=== PATIENT | female | born 1980 | race Caucasian/White ===

== ENCOUNTER 2019-06-20 09:15 | Emergency (ER) | payer SELFPAY ==
[~2019-06-20] VITALS: Ht 154.9 cm; Wt 111.0 kg
[2019-06-20] MEDS ORDERED: ACETAMINOPHEN 325MG TABLET PO PRN (10:30)
[2019-06-20] MEDS ORDERED: LABETALOL HCL 100MG TABLET PO ONE (10:30)
[2019-06-20 10:56] LABS: CLARITY URINE CLEAR (CLEAR); COLOR URINE YELLOW (YELLOW); KETONES URINE NEGATIVE (NEGATIVE); LEUKOCYTE ESTERASE URINE NEGATIVE (NEGATIVE); NITRITE URINE NEGATIVE (NEGATIVE); OCCULT BLOOD URINE 2+ (NEGATIVE); PH URINE 7.5 (4.5-8.0); PROTEIN URINE NEGATIVE (NEGATIVE); SPECIFIC GRAVITY URINE 1.012 (1.005-1.030); UROBILINOGEN URINE 0.2 E.U./dL (0.2-1.0)
[2019-06-20 10:57] LABS: EOSINOPHILS % 3.7 % (0.0-5.0); HEMATOCRIT. 38.4 % (36.0-48.0); HEMOGLOBIN. 12.7 g/dL (12.0-16.0); LYMPHOCYTES % 33.3 % (20.0-50.0); MEAN CORPUSCULAR HEMOGLOBIN 27.3 pg (28.0-32.0); MEAN CORPUSCULAR VOLUME 82.2 fL (81.0-99.0); MEAN PLATELET VOLUME 9.1 fl (7.4-10.4); MONOCYTES % 7.2 % (2.0-8.0); NEUTROPHILS % 54.8 % (40.0-76.0); PLATELET 225 x1000/uL (130-400); RED BLOOD CELL COUNT 4.66 mill/uL (4.2-5.4); RED CELL DISTRIBUTION WIDTH 14.6 % (11.6-14.6)
[2019-06-20 11:01] LABS: CHLORIDE 106 mEq/L (98-107)
[2019-06-20 11:23] LABS: B-HCG QUANTITATIVE 3556 mIU/mL (<3)
[2019-06-20 12:20] VITALS: BP 135/71
== END 2019-06-20 13:37 | disposition home or self-care (01) ==
LOC: ER 09:15
DX: O20.0 Threatened abortion (principal); O16.9 Unspecified maternal hypertension, unspecified trimester; O09.529 Supervision of elderly multigravida, unspecified trimester; Z3A.00 Weeks of gestation of pregnancy not specified
CPT/HCPCS: 36415; 76801; 81003; 81025; 84702; 86850; 86900; 99284

== ENCOUNTER 2019-06-22 09:42 | Emergency (ER) | payer MEDICAID ==
[~2019-06-22] VITALS: Ht 154.9 cm; Wt 120.0 kg
[2019-06-22] MEDS ORDERED: LABETALOL 5MG/ML SYR 20 MG/4 ML SYRINGE IV ONE (10:15)
[2019-06-22 10:46] LABS: BASOPHILS % 0.8 % (0.0-2.0); EOSINOPHILS % 1.9 % (0.0-5.0); HEMATOCRIT. 36.6 % (36.0-48.0); HEMOGLOBIN. 12.3 g/dL (12.0-16.0); LYMPHOCYTES % 34.8 % (20.0-50.0); MEAN CORPUSCULAR HEMOGLOBIN 27.6 pg (28.0-32.0); MEAN CORPUSCULAR VOLUME 82.2 fL (81.0-99.0); MEAN PLATELET VOLUME 9.1 fl (7.4-10.4); MONOCYTES % 6.4 % (2.0-8.0); NEUTROPHILS % 56.1 % (40.0-76.0); PLATELET 238 x1000/uL (130-400); RED BLOOD CELL COUNT 4.45 mill/uL (4.2-5.4); RED CELL DISTRIBUTION WIDTH 14.5 % (11.6-14.6)
[2019-06-22 10:52] LABS: CHLORIDE 106 mEq/L (98-107)
[2019-06-22 11:13] LABS: B-HCG QUANTITATIVE 2587 mIU/mL (<3)
[2019-06-22 12:14] LABS: CLARITY URINE CLOUDY (CLEAR); COLOR URINE ORANGE (YELLOW); KETONES URINE TRACE (NEGATIVE); LEUKOCYTE ESTERASE URINE NEGATIVE (NEGATIVE); NITRITE URINE NEGATIVE (NEGATIVE); OCCULT BLOOD URINE 3+ (NEGATIVE); PH URINE 5.5 (4.5-8.0); PROTEIN URINE 1+ (NEGATIVE); SPECIFIC GRAVITY URINE 1.039 (1.005-1.030)
[2019-06-22 12:58] LABS: *BARBITURATES SCREEN URINE NEGATIVE (NEGATIVE)
[2019-06-22 12:59] LABS: *AMPHETAMINES SCREEN URINE NEGATIVE (NEGATIVE); *BENZODIAZEPINES SCREEN URINE NEGATIVE (NEGATIVE); *COCAINE SCREEN URINE NEGATIVE (NEGATIVE); METHADONE URINE SCREEN NEGATIVE (NEGATIVE); OPIATES URINE SCREEN NEGATIVE (NEGATIVE)
[2019-06-22 13:00] LABS: CANNABINOID URINE SCREEN NEGATIVE (NEGATIVE); PHENCYCLIDINE URINE SCREEN NEGATIVE (NEGATIVE)
[2019-06-22 15:17] VITALS: BP 131/82
== END 2019-06-22 15:19 | disposition home or self-care (01) ==
LOC: ER 09:42
DX: O10.911 Unspecified pre-existing hypertension complicating pregnancy, first trimester (principal); I16.0 Hypertensive urgency; O20.0 Threatened abortion; Z3A.00 Weeks of gestation of pregnancy not specified; O09.529 Supervision of elderly multigravida, unspecified trimester
CPT/HCPCS: 36415; 76801; 76817; 80053; 80305; 81003; 81025; 84484; 84702; 85025; 86850; 86900; 86901; 93005; 96374; 99284; J3490

== ENCOUNTER 2019-06-24 09:14 | Emergency (ER) | payer MEDICAID ==
[~2019-06-24] VITALS: Ht 154.9 cm; Wt 111.0 kg
[2019-06-24] MEDS ORDERED: ACETAMINOPHEN 325MG TABLET PO PRN (10:15)
[2019-06-24 10:25] LABS: BASOPHILS % 0.5 % (0.0-2.0); EOSINOPHILS % 1.6 % (0.0-5.0); HEMATOCRIT. 37.8 % (36.0-48.0); HEMOGLOBIN. 12.4 g/dL (12.0-16.0); LYMPHOCYTES % 26.3 % (20.0-50.0); MEAN CORPUSCULAR HEMOGLOBIN 26.9 pg (28.0-32.0); MONOCYTES % 6.3 % (2.0-8.0); NEUTROPHILS % 65.3 % (40.0-76.0); PLATELET 232 x1000/uL (130-400); RED BLOOD CELL COUNT 4.62 mill/uL (4.2-5.4); RED CELL DISTRIBUTION WIDTH 14.6 % (11.6-14.6)
[2019-06-24 10:27] LABS: CHLORIDE 103 mEq/L (98-107)
[2019-06-24 10:51] LABS: B-HCG QUANTITATIVE 2454 mIU/mL (<3)
[2019-06-24 11:09] VITALS: BP 144/80
[2019-06-24 12:03] LABS: CLARITY URINE CLOUDY (CLEAR); COLOR URINE YELLOW (YELLOW); KETONES URINE NEGATIVE (NEGATIVE); LEUKOCYTE ESTERASE URINE TRACE (NEGATIVE); NITRITE URINE NEGATIVE (NEGATIVE); OCCULT BLOOD URINE 3+ (NEGATIVE); PROTEIN URINE NEGATIVE (NEGATIVE); SPECIFIC GRAVITY URINE 1.009 (1.005-1.030); UROBILINOGEN URINE 0.2 E.U./dL (0.2-1.0)
== END 2019-06-24 12:53 | disposition home or self-care (01) ==
LOC: ER 09:14
DX: O03.9 Complete or unspecified spontaneous abortion without complication (principal); O46.90 Antepartum hemorrhage, unspecified, unspecified trimester; O26.90 Pregnancy related conditions, unspecified, unspecified trimester; I10 Essential (primary) hypertension; Z90.49 Acquired absence of other specified parts of digestive tract; Z3A.00 Weeks of gestation of pregnancy not specified
CPT/HCPCS: 36415; 76801; 81003; 84702; 86850; 86900; 99284